=== PATIENT | male | born 1950 | race Caucasian/White ===

== ENCOUNTER 2021-01-16 09:26 | Inpatient (IN) ==
[2021-01-16] MEDS ORDERED: DIPHTHERIA/TETANUS/PERTUSSIS 0.5 ML SYR/VIAL IM ONE (09:27)
[2021-01-16] MEDS ORDERED: ONDANSETRON INJ 2 MG/ML 2 ML VIAL ONE ×2 (09:27→13:00)
[2021-01-16] MEDS ORDERED: HYDROmorphone INJ 1 MG/ML SYRINGE ONE (09:27)
[2021-01-16] MEDS ORDERED: LACTATED RINGER'S 500 ML IV ONE (09:27)
[2021-01-16] MEDS ORDERED: ONDANSETRON INJ 2 MG/ML 2 ML VIAL IV STA ×2 (09:32→10:48)
[2021-01-16] MEDS ORDERED: HYDROmorphone INJ 1 MG/ML SYRINGE IV STA ×3 (09:32→10:48)
[2021-01-16] MEDS ORDERED: LACTATED RINGER'S 1,000 ML IV SCH (09:45)
[2021-01-16 09:57] LABS: Basophils # (auto) 0.02 K/uL (0-0.2); Basophils % (auto) 0.3 %; Eosinophils # (auto) 0.11 K/uL (0-0.5); Eosinophils % (auto) 1.5 %; Hematocrit (blood only) 40.8 % (42-52); Hemoglobin 14.5 g/dL (14.0-18.0); Immature Granulocytes # (auto) 0.01 K/uL (0.00-0.02); Immature Granulocytes % (auto) 0.1 %; Lymphocytes # (auto) 1.51 K/uL (1.2-3.4); Lymphocytes % (auto) 19.9 %; Mean Corpuscular Hemoglobin 32.7 pg (25-34); Mean Corpuscular Hgb Conc 35.5 g/dL (32-36); Mean Corpuscular Volume 91.9 fL (80-100); Mean Platelet Volume 10.3 fL (7.4-10.4); Monocytes # (auto) 0.35 K/uL (0.11-0.59); Monocytes % (auto) 4.6 %; Neutrophils # (auto) 5.58 K/uL (1.4-6.5); Neutrophils % (auto) 73.6 %; Platelet Count 175 K/uL (130-400); RDW Coefficient of Variation 13.2 % (11.5-14.5); RDW Standard Deviation 43.7 fL (36.4-46.3); Red Blood Count 4.44 M/uL (4.7-6.1); White Blood Count 7.58 K/uL (4.8-10.8)
--- NOTE | 2021-01-16 09:57 | XRay Report ---
XR tibia fibula LT 2V, XR foot LT 2V HISTORY: 70 years-old Male trauma pain acute pain of the left lower leg and foot status post trauma COMPARISON: None TECHNIQUE: 2 views of the left tibia and fibula with 2 views of the left foot FINDINGS: TIBIA/FIBULA: Acute transverse fractures of the mid to distal diaphyseal tibia and fibula demonstrate mild apex med ial and volar angulation with lateral displacement measuring up to 1.3 cm. Mild associated foreshorte yony. Moderate associated soft tissue swelling. FOOT: Limited exam secondary to positioning. Soft tissue swelling of the lower leg and ankle, most pronounc ed medially. Dorsal soft tissue swelling of the forefoot. Mild multifocal osteoarthritis. No acute fr acture or dislocation identified. IMPRESSION: 1. Acute transverse, displaced, mildly angulated and foreshortened fractures of the mid to distal binh physeal tibia and fibula. 2. No acute fracture of the left foot. ACT 112: Negative or not required by law. The above report was generated using voice recognition software. It may contain grammatical, syntax o r spelling errors. Electronically signed by: Roger Dorado M.D. 01/16/2021 9:56 AM
[2021-01-16 10:08] LABS: Prothrombin Time 9.8 Seconds (9.0-12.0)
[2021-01-16 10:35] LABS: Albumin Level 3.8 gm/dl (3.4-5.0); BUN Creatinine Ratio 12.9 (10-20); Calcium 8.9 mg/dl (8.5-10.1); Creatinine Clr Calc Pharmacy 50.5 ml/min; Est GFR (African American) 50.6 ml/min; Est GFR (Non-African American) 43.7 ml/min; Potassium 4.2 mmol/L (3.5-5.1)
[2021-01-16 10:38] LABS: Albumin Globulin Ratio 1.2 (0.9-2); Bilirubin,Total 0.5 mg/dl (0.2-1); Globulin 3.3 gm/dl (2.5-4.0); Total Protein 7.1 gm/dl (6.4-8.2)
[2021-01-16] MEDS ORDERED: ceFAZolin 1000MG 1,000 MG/7.5 ML SYR IV STA (10:48)
--- NOTE | 2021-01-16 11:03 | XRay Report ---
XR tibia fibula LT 2V HISTORY: 70 years-old Male post splinting, reduction attempt status post casting reduction of the ac [place] band distal tibia and fibula fractures of the left leg COMPARISON: Radiographs of same day at 9:26 AM TECHNIQUE: 2 views of the left tibia and fibula FINDINGS: Acute fractures of the mid to distal tibia and fibular diaphyses are redemonstrated with mild persist ent foreshortening. Mildly progressed apex medial angulation with lateral displacement measuring up t o 11 mm. Mild apex volar angulation with posterior displacement measuring up to 11 mm. Persistent sof t tissue swelling. IMPRESSION: Persistent displacement and angulation of the acute mid to distal tibia and fibular fract ures status post reduction and casting. ACT 112: Negative or not required by law. The above report was generated using voice recognition software. It may contain grammatical, syntax o r spelling errors. Electronically signed by: Roger Dorado M.D. 01/16/2021 11:02 AM
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
[2021-01-16] MEDS ORDERED: ONDANSETRON INJ 2 MG/ML 2 ML VIAL IV PRN ×3 (11:16→17:21)
[2021-01-16] MEDS ORDERED: METOCLOPRAMIDE HCL INJ 5 MG/ML 2 ML VIAL IV PRN ×3 (11:16→17:21)
[2021-01-16] MEDS ORDERED: SODIUM CHLORIDE 0.9% 1000ML 1,000 ML IV SCH ×2 (11:30→17:21)
[2021-01-16] MEDS ORDERED: BUPIVACAINE 0.5 % 5 MG/1 ML MPF 30ML VIAL ONE (12:14)
[2021-01-16] MEDS ORDERED: EPINEPHrine INJ 1 MG/ML AMP ONE (12:14)
[2021-01-16] MEDS ORDERED: ROPIVACAINE 0.5% 5 MG/ML 30 ML VIAL ONE (12:23)
[2021-01-16] MEDS ORDERED: ePHEDrine sulfate 50 MG/ML AMP IV PRN (12:27)
[2021-01-16] MEDS ORDERED: fentaNYL citrate 100 MCG/2 ML VIAL IV PRN (12:27)
[2021-01-16] MEDS ORDERED: HYDROmorphone INJ 2 MG/ML SYR/VIAL IV PRN (12:27)
[2021-01-16] MEDS ORDERED: PROMETHAZINE HCL 12.5 MG in SODIUM CHLORIDE 0.9% 50 ML IV PRN (12:27)
[2021-01-16] MEDS ORDERED: ATROPINE SULFATE 0.1 MG/ML 10ML SYR IV PRN (12:27)
[2021-01-16] MEDS ORDERED: MIDAZOLAM HCL 1 MG/ML 2ML VIAL ONE (12:30)
[2021-01-16] MEDS ORDERED: fentaNYL citrate 100 MCG/2 ML VIAL ONE (12:30)
[2021-01-16] MEDS ORDERED: KETAMINE 50 MG/5 ML SYRINGE ONE (12:59)
[2021-01-16] MEDS ORDERED: LIDOCAINE 2% 2 ML VIAL/AMP(20MG/ML) INFIL ONE (13:00)
[2021-01-16] MEDS ORDERED: DEXAMETHASONE SOD INJ 4 MG/ML VIAL ONE (13:00)
[2021-01-16] MEDS ORDERED: ROCURONIUM BROMIDE 10 MG/ML 5 ML VIAL IV ONE (13:00)
[2021-01-16] MEDS ORDERED: PROPOFOL IV EMULSION 10 MG/ML 20 ML VIAL IV ONE (13:00)
[2021-01-16] MEDS ORDERED: TRANEXAMIC ACID / 0.7% NACL 1000MG/100ML BAG IV ONE (13:50)
--- NOTE | 2021-01-16 13:56 | Anesthesiology Consultation ---
Date of Service January 16, 2021 Assessment & Plan Chart Review Chart Review: Acceptable Risk for Surgery Consults Requested none History Surgery Operation Date: 01/16/21 10:40 Proposed Procedures p Left Tibia Nailing - Taran Jensen MD Height/Weight Height: 5 ft 11 in Weight: 94 kg Allergies Allergy/AdvReac Type Severity Reaction Status Date / Time No Known Allergies Allergy Unverified 01/16/21 11:04 Medications Home Medications Medication Instructions Recorded Confirmed Last Taken allopurinol 100 mg tablet 100 mg PO HS 01/16/21 01/16/21 01/15/21 finasteride 5 mg tablet 5 mg PO HS 01/16/21 01/16/21 01/15/21 tamsulosin 0.4 mg capsule 0.4 mg PO HS 01/16/21 01/16/21 01/15/21 Active Medications Generic Name Dose Route Start Last Admin Trade Name Freq PRN Reason Stop Dose Admin Lactated Ringer's 1,000 mls @ 125 mls/hr 01/16/21 09:45 01/16/21 10:38 Lr IV 02/15/21 09:44 125 mls/hr .Q8H ARNULFO Administration NPO Date Last Intake of Fluids: 01/16/21 Time Last Intake of Fluids: 04:00 Date Last Intake of Solids: 01/15/21 Time Last Intake of Solids: 18:00 Social History Smoking Status: Former smoker Physical Exam Vital Signs Last Vital Signs Temp 36.8 C 01/16/21 12:16 Pulse 61 01/16/21 12:16 Resp 18 01/16/21 12:16 BP 138/78 01/16/21 12:16 Pulse Ox 100 01/16/21 12:16 Testing Laboratory Results 01/16/21 09:37 01/16/21 09:37 PT 9.8 Seconds (9.0-12.0) 01/16/21 09:37 INR 1.0 (0.9-1.1) 01/16/21 09:37 Blood Type O Positive 01/16/21 09:37 Antibody Screen NEGATIVE 01/16/21 09:37
[2021-01-16] MEDS ORDERED: ceFAZolin 1000MG 1,000 MG/7.5 ML SYR IV ONE (14:18)
[2021-01-16] MEDS ORDERED: NEOSTIGMINE METHYLSULFATE 1 MG/ML 10ML VIAL ONE (15:29)
[2021-01-16] MEDS ORDERED: GLYCOPYRROLATE 0.2 MG/ML VIAL ONE (15:29)
--- NOTE | 2021-01-16 15:31 | Electrocardiogram Report ---
Test Reason : Blood Pressure : / mmHG Vent. Rate : 070 BPM Atrial Rate : 070 BPM P-R Int : 172 ms QRS Dur : 090 ms QT Int : 386 ms P-R-T Axes : 063 010 023 degrees QTc Int : 416 ms Poor data quality, interpretation may be adversely affected Normal sinus rhythm Normal ECG No previous ECGs available Confirmed by Marcos Meraz ([id number]) on 01/16/2021 3:30:59 PM Referred By: REFERRED SELF Confirmed By:Gustavo Meraz
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
--- NOTE | 2021-01-16 16:08 | Fluoroscopy Report ---
FL foot LT 2V, FL tibia/fibula LT 2V CLINICAL HISTORY: Left foot and toe images during tib/fib surgery. 1st toe lac COMPARISON STUDY: Left foot 01/16/2021. Left tibia/fibula 01/16/2021. FLUOROSCOPY TIME: 2 minutes and 19 seconds. FINDINGS: 10 fluoroscopic spot images of the left foot and 14 fluoroscopic spot images of the left lo wer leg worse minute for review. There is an intramedullary brown traversing the mid shaft tibial fract ure. The hardware appears intact. Alignment is near-anatomic. There is also improved anatomic alignme nt of the mid shaft fibular fracture. IMPRESSION: Fluoroscopy provided for internal fixation of the mid shaft left tibial and fibular fract ures. The hardware appears intact. ACT 112: Negative or not required by law. Electronically signed by: Paolo Mauro M.D. 01/16/2021 4:07 PM
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
--- NOTE | 2021-01-16 17:11 | Anesthesiology Progress Note ---
Date of Service January 16, 2021 Anesthesia Post Procedure Vital Signs Vital Signs: Temp Pulse Pulse Pulse Resp BP BP 01/16/21 16:55 46 L 16 141/68 H 01/16/21 16:45 36 C L 50 L 16 151/76 H 01/16/21 16:35 58 L 16 151/78 H 01/16/21 16:25 48 L 13 119/68 01/16/21 16:15 48 L 12 145/72 H 01/16/21 16:05 49 L 15 139/71 01/16/21 15:55 36 C L 62 16 164/83 H 01/16/21 12:16 36.8 C 61 18 138/78 01/16/21 11:00 67 153/89 H 01/16/21 10:30 60 156/91 H 01/16/21 10:00 73 149/83 H 01/16/21 09:46 79 20 134/87 01/16/21 09:30 72 161/83 H Pulse Ox 01/16/21 16:55 98 01/16/21 16:45 98 01/16/21 16:35 97 01/16/21 16:25 97 01/16/21 16:15 99 01/16/21 16:05 99 01/16/21 15:55 100 01/16/21 12:16 100 01/16/21 11:00 98 01/16/21 10:30 98 01/16/21 10:00 96 01/16/21 09:46 93 01/16/21 09:30 99 Pain Intensity Left Leg: Pain Intensity: 6 Transfer of Care Handoff Completed per policy Notes Mental Status: alert / awake / arousable Patient Amnestic to Procedure: Yes Nausea / Vomiting: adequately controlled Pain: adequately controlled Airway Patency, RR, SpO2: stable & adequate BP & HR: stable & adequate Hydration State: stable & adequate Anesthetic Complications: no major complications apparent
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
[2021-01-16] MEDS ORDERED: ALUMINUM/MAGNESIUM SUSP 30 ML UDC PO PRN (17:21)
[2021-01-16] MEDS ORDERED: HYDROmorphone INJ 0.5 MG/0.5 ML SYR IV PRN (17:21)
[2021-01-16] MEDS ORDERED: diphenhydrAMINE 50 MG/ML VIAL IV PRN (17:21)
[2021-01-16] MEDS ORDERED: bisacodyL 10 MG SUPP PR PRN (17:21)
[2021-01-16] MEDS ORDERED: NALOXONE HCL 0.4 MG/1 ML VIAL/CARP IV PRN (17:21)
[2021-01-16] MEDS ORDERED: MAGNESIUM HYDROXIDE SUSP 30 ML UDC PO PRN (17:21)
[2021-01-16] MEDS: ASCORBIC ACID 500 MG TAB PO SCH (18:45)
[2021-01-16] MEDS: FERROUS GLUCONATE 324 MG TAB PO SCH (18:45)
[2021-01-16] MEDS: KETOROLAC TROMETHAMINE 15 MG/ML VIAL IV SCH ×2 (18:46→23:35)
--- NOTE | 2021-01-16 19:42 | Progress Notes ---
DATE OF SERVICE: 01/16/2021 SUBJECTIVE: The patient is comfortable. Pain is well controlled. I discussed with him the results of the surgical procedure including the evaluation of his knee, the intramedullary nailing of his tib ia, the evaluation of his toe as well as stress x-rays of the foot. Plan is to get CT scan of foot a nd ankle for further evaluation. Vascular surgery will also evaluate his nonpalpable posterior tibia l pulse. OBJECTIVE: His dressing is clean and dry. Eversion strength is 4/5. Ankle plantar flexion and dors iflexion 5/5. Toe flexion and extension 4/5. Inversion 5/5. Capillary refill is less than 2 second s in the lesser toes. Dorsalis pedis is 1+ palpable and sensation is intact throughout the toes and dorsum and plantar aspect of the foot. PLAN: Administer 24 hours of IV antibiotics. Vascular consult. PT for toe touch weightbearing. We will reevaluate the wounds. Lovenox for DVT prophylaxis. Pain control. Job ID: [id number]
[2021-01-16] MEDS: FINASTERIDE 5 MG TAB PO SCH (21:10)
[2021-01-16] MEDS: TAMSULOSIN HCL 0.4 MG CAP PO SCH (21:10)
[2021-01-16] MEDS: ACETAMINOPHEN 500 MG TAB PO SCH (21:10)
[2021-01-16] MEDS: allopurinoL 100 MG TAB PO SCH (21:10)
[2021-01-16] MEDS: ceFAZolin 2000MG 2,000 MG/15 ML SYR IV SCH (21:11)
[2021-01-16] MEDS: SENNA 8.6 MG TAB PO SCH (21:11)
[2021-01-16] MEDS: DOCUSATE SODIUM 100 MG CAP PO SCH (21:11)
[2021-01-17] MEDS: ceFAZolin 2000MG 2,000 MG/15 ML SYR IV SCH ×2 (05:33→14:25)
[2021-01-17] MEDS: ACETAMINOPHEN 500 MG TAB PO SCH ×3 (05:33→19:43)
[2021-01-17] MEDS: KETOROLAC TROMETHAMINE 15 MG/ML VIAL IV SCH ×2 (05:34→12:06)
[2021-01-17] MEDS: oxyCODONE HCL IR 5 MG TAB (IMMEDIATE RELEASE) PO PRN ×3 (05:39→22:24)
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
--- NOTE | 2021-01-17 08:27 | Orthopedic Progress Note ---
Date of Service January 17, 2021 Assessment & Plan (1) Open fracture of tibia and fibula, shaft: Plan: x doing well. We will continue elevation icing. PT and OT. Toe-touch weightbearing on the left leg. Will review CT scan of foot and ankle for further information. Active movement of ankle and knee. There is no clinical evidence of compartment syndrome. He has no pain with passive or active movement. Lovenox for DVT prophylaxis. 24-hour course of IV antibiotics. Vascular consult pending. Present on Admission?: Yes Admission and Anticipated Discharge Date Admission Date: January 16, 2021 Subjective Reports 5 out of 10 pain. Much better than previous. No tingling or numbness. We discussed the surgical findings. The open fracture. The exam of the foot. Diminished pulses and vascular consult pending. Weightbearing limitation and open fracture care. Physical Exam Physical Exam: Dressing is clean and dry. He has 4 out of 5 inversion and eversion strength. 5 out of 5 ankle plantarflexion and dorsiflexion strength. He can actively flex and extend the toes but does not have what I would consider normal strength. 3+ out of 5. He can extend and flex the big toe. Dorsalis pedis pulses not palpable but it is dopplerable. He has a palpable 1+ pulse on the right foot. Capillary refill is less than 2 seconds. Foot is warm and not mottled. Results & Data ([facility]) Vital Signs (Past 12 Hours) Vital Signs Temp Pulse Pulse Resp BP Pulse Ox 01/17/21 07:27 36.5 C 62 76 17 119/70 98 01/17/21 04:00 36.6 C 72 16 124/71 99 01/16/21 22:49 36.4 C L 82 16 123/67 98 01/16/21 21:20 36.4 C L 01/16/21 21:01 36.4 C L 78 16 134/78 97 Laboratory Results 01/17/21 01/16/21 01/16/21 Range/Units 08:04 10:00 10:00 WBC Pending (4.8-10.8) K/uL RBC Pending (4.7-6.1) M/uL Hgb Pending (14.0-18.0) g/dL Hct Pending (42-52) % MCV Pending (80-100) fL MCH Pending (25-34) pg MCHC Pending (32-36) g/dL RDW Std Deviation (36.4-46.3) fL RDW Coeff of Jeff (11.5-14.5) % Plt Count Pending (130-400) K/uL MPV (7.4-10.4) fL Immature Gran % (Auto) % Neut % (Auto) % Lymph % (Auto) % Lee % (Auto) % Eos % (Auto) % Baso % (Auto) % Neut # (Auto) (1.4-6.5) K/uL Lymph # (Auto) (1.2-3.4) K/uL Lee # (Auto) (0.11-0.59) K/uL Eos # (Auto) (0-0.5) K/uL Baso # (Auto) (0-0.2) K/uL Immature Gran # (Auto) (0.00-0.02) K/uL PT (9.0-12.0) Seconds INR (0.9-1.1) Sodium (136-145) mmol/L Potassium (3.5-5.1) mmol/L Chloride (98-107) mmol/L Carbon Dioxide (21-32) mmol/L Anion Gap (3-11) BUN (7-18) mg/dl Creatinine (0.6-1.4) mg/dl Est Cr Clr Drug Dosing ml/min Est GFR ( Amer) ml/min Est GFR (Non-Af Amer) ml/min BUN/Creatinine Ratio (10-20) Glucose (70-99) mg/dl Calcium (8.5-10.1) mg/dl Total Bilirubin (0.2-1) mg/dl AST (15-37) U/L ALT (12-78) U/L Alkaline Phosphatase (45-117) U/L Total Creatine Kinase (39-308) U/L Total Protein (6.4-8.2) gm/dl Albumin (3.4-5.0) gm/dl Globulin (2.5-4.0) gm/dl Albumin/Globulin Ratio (0.9-2) COVID-19 Eval Order Covid19 at [facility] SARS-CoV-2 (PCR) NEGATIVE (Negative) Blood Type Antibody Screen 0801/16/21 01/16/21 Range/Units 09:37 09:37 09:37 WBC (4.8-10.8) K/uL RBC (4.7-6.1) M/uL Hgb (14.0-18.0) g/dL Hct (42-52) % MCV (80-100) fL MCH (25-34) pg MCHC (32-36) g/dL RDW Std Deviation (36.4-46.3) fL RDW Coeff of Jeff (11.5-14.5) % Plt Count (130-400) K/uL MPV (7.4-10.4) fL Immature Gran % (Auto) % Neut % (Auto) % Lymph % (Auto) % Lee % (Auto) % Eos % (Auto) % Baso % (Auto) % Neut # (Auto) (1.4-6.5) K/uL Lymph # (Auto) (1.2-3.4) K/uL Lee # (Auto) (0.11-0.59) K/uL Eos # (Auto) (0-0.5) K/uL Baso # (Auto) (0-0.2) K/uL Immature Gran # (Auto) (0.00-0.02) K/uL PT 9.8 (9.0-12.0) Seconds INR 1.0 (0.9-1.1) Sodium 138 (136-145) mmol/L Potassium 4.2 (3.5-5.1) mmol/L Chloride 108 H (98-107) mmol/L Carbon Dioxide 27 (21-32) mmol/L Anion Gap 3.0 (3-11) BUN 20 H (7-18) mg/dl Creatinine 1.57 H (0.6-1.4) mg/dl Est Cr Clr Drug Dosing 50.5 ml/min Est GFR ( Amer) 50.6 ml/min Est GFR (Non-Af Amer) 43.7 ml/min BUN/Creatinine Ratio 12.9 (10-20) Glucose 139 H (70-99) mg/dl Calcium 8.9 (8.5-10.1) mg/dl Total Bilirubin 0.5 (0.2-1) mg/dl AST 20 (15-37) U/L ALT 28 (12-78) U/L Alkaline Phosphatase 94 (45-117) U/L Total Creatine Kinase 192 (39-308) U/L Total Protein 7.1 (6.4-8.2) gm/dl Albumin 3.8 (3.4-5.0) gm/dl Globulin 3.3 (2.5-4.0) gm/dl Albumin/Globulin Ratio 1.2 (0.9-2) COVID-19 Eval Order SARS-CoV-2 (PCR) (Negative) Blood Type O Positive Antibody Screen NEGATIVE 01/16/21 Range/Units 09:37 WBC 7.58 (4.8-10.8) K/uL RBC 4.44 L (4.7-6.1) M/uL Hgb 14.5 (14.0-18.0) g/dL Hct 40.8 L (42-52) % MCV 91.9 (80-100) fL MCH 32.7 (25-34) pg MCHC 35.5 (32-36) g/dL RDW Std Deviation 43.7 (36.4-46.3) fL RDW Coeff of Jeff 13.2 (11.5-14.5) % Plt Count 175 (130-400) K/uL MPV 10.3 (7.4-10.4) fL Immature Gran % (Auto) 0.1 % Neut % (Auto) 73.6 % Lymph % (Auto) 19.9 % Lee % (Auto) 4.6 % Eos % (Auto) 1.5 % Baso % (Auto) 0.3 % Neut # (Auto) 5.58 (1.4-6.5) K/uL Lymph # (Auto) 1.51 (1.2-3.4) K/uL Lee # (Auto) 0.35 (0.11-0.59) K/uL Eos # (Auto) 0.11 (0-0.5) K/uL Baso # (Auto) 0.02 (0-0.2) K/uL Immature Gran # (Auto) 0.01 (0.00-0.02) K/uL PT (9.0-12.0) Seconds INR (0.9-1.1) Sodium (136-145) mmol/L Potassium (3.5-5.1) mmol/L Chloride (98-107) mmol/L Carbon Dioxide (21-32) mmol/L Anion Gap (3-11) BUN (7-18) mg/dl Creatinine (0.6-1.4) mg/dl Est Cr Clr Drug Dosing ml/min Est GFR ( Amer) ml/min Est GFR (Non-Af Amer) ml/min BUN/Creatinine Ratio (10-20) Glucose (70-99) mg/dl Calcium (8.5-10.1) mg/dl Total Bilirubin (0.2-1) mg/dl AST (15-37) U/L ALT (12-78) U/L Alkaline Phosphatase (45-117) U/L Total Creatine Kinase (39-308) U/L Total Protein (6.4-8.2) gm/dl Albumin (3.4-5.0) gm/dl Globulin (2.5-4.0) gm/dl Albumin/Globulin Ratio (0.9-2) COVID-19 Eval Order SARS-CoV-2 (PCR) (Negative) Blood Type Antibody Screen (1) Open fracture of tibia and fibula, shaft Encounter type: initial encounter Laterality: left Open fracture type: open type I or II Qualified Code(s): S82.202B - Unspecified fracture of shaft of left tibia, initial encounter for open fracture type I or II; S82.402B - Unspecified fracture of shaft of left fibula, initial encounter for open fracture type I or II
[2021-01-17 08:28] LABS: Hematocrit (blood only) 36.9 % (42-52); Mean Corpuscular Hemoglobin 32.6 pg (25-34); Mean Corpuscular Hgb Conc 35.2 g/dL (32-36); Mean Corpuscular Volume 92.5 fL (80-100); Mean Platelet Volume 10.7 fL (7.4-10.4); Platelet Count 191 K/uL (130-400); RDW Coefficient of Variation 13.3 % (11.5-14.5); RDW Standard Deviation 44.5 fL (36.4-46.3); Red Blood Count 3.99 M/uL (4.7-6.1); White Blood Count 13.15 K/uL (4.8-10.8)
[2021-01-17] MEDS: ENOXAPARIN INJ 30 MG/0.3 ML SYR SQ SCH ×2 (09:15→19:41)
[2021-01-17] MEDS: FERROUS GLUCONATE 324 MG TAB PO SCH ×2 (09:15→16:36)
[2021-01-17] MEDS: ASCORBIC ACID 500 MG TAB PO SCH ×2 (09:15→16:36)
[2021-01-17] MEDS: MULTIVITAMIN TAB PO SCH (09:15)
[2021-01-17] MEDS: DOCUSATE SODIUM 100 MG CAP PO SCH ×2 (09:15→19:42)
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
[2021-01-17] MEDS ORDERED: OPTIRAY 320 125ml IV ONE (14:14)
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
[2021-01-17] MEDS: SENNA 8.6 MG TAB PO SCH (19:42)
[2021-01-17] MEDS: allopurinoL 100 MG TAB PO SCH (19:42)
[2021-01-17] MEDS: TAMSULOSIN HCL 0.4 MG CAP PO SCH (19:42)
[2021-01-17] MEDS: FINASTERIDE 5 MG TAB PO SCH (19:43)
[2021-01-18] MEDS: oxyCODONE HCL IR 5 MG TAB (IMMEDIATE RELEASE) PO PRN ×4 (03:19→20:15)
[2021-01-18] MEDS: ACETAMINOPHEN 500 MG TAB PO SCH ×3 (05:06→21:13)
[2021-01-18] MEDS: FERROUS GLUCONATE 324 MG TAB PO SCH ×2 (08:32→15:59)
[2021-01-18] MEDS: ASCORBIC ACID 500 MG TAB PO SCH ×2 (08:32→15:59)
[2021-01-18] MEDS: MULTIVITAMIN TAB PO SCH (08:32)
[2021-01-18] MEDS: ENOXAPARIN INJ 30 MG/0.3 ML SYR SQ SCH ×2 (08:32→20:06)
[2021-01-18] MEDS: DOCUSATE SODIUM 100 MG CAP PO SCH ×2 (08:32→20:07)
--- NOTE | 2021-01-18 10:53 | Communication Note ---
Date of Service: January 18, 2021 CTA showed a short occlusion of the left posterior tibial artery. The peroneal is widely patent in its entire course. The anterior tibial has areas of mild narrowing but is patent and feeds the dorsalis pedis artery. No intervention is indicated at this time. There is good perfusion to the left foot.
[2021-01-18] MEDS: FINASTERIDE 5 MG TAB PO SCH (20:07)
[2021-01-18] MEDS: SENNA 8.6 MG TAB PO SCH (20:07)
[2021-01-18] MEDS: TAMSULOSIN HCL 0.4 MG CAP PO SCH (20:07)
[2021-01-18] MEDS: allopurinoL 100 MG TAB PO SCH (20:07)
--- NOTE | 2021-01-18 21:57 | Orthopedic Progress Note ---
Date of Service January 18, 2021 Assessment & Plan (1) S/P ORIF (open reduction internal fixation) fracture: Plan: Patient's dressings were changed by me. [place] wrap was applied to assist with edema control. Continue with ice and elevation. Continue with PT using toe- touch weightbearing. Patient was seen by adoption social worker today. They will make arrangements so that he may return home to [place]. Anticipate that he will be ready for discharge tomorrow. Patient will be need to be seen in the office next week for wound check, and then again the following week with Dr. Jensen for staple removal. Continue with Lovenox. Admission and Anticipated Discharge Date Admission Date: January 16, 2021 Subjective Patient is seen in his room this morning. States he has some pain in his leg, but it is better than preop. He denies any chest pain, shortness of breath, nausea, vomiting, or abdominal pain. He would like to go home. No new complaints. He was able to participate with PT today and ambulated 40 feet. He would like to be able to bend his knee. He states the dressing is preventing him from doing so. He has been using Percocet fairly regularly through the night. He has not required any Dilaudid. Review of Systems Review of Systems: Unchanged from yesterday. Physical Exam Physical Exam: General: Well-developed, elderly male, in no acute distress. Sitting in his bedside chair. Alert and oriented. Conversive. Skin: Warm and dry with good turgor. Postsurgical dressings are in place. Upon removal, he has expected postoperative ecchymosis and 2+ peripheral edema through the ankle and foot. No active bleeding from his surgical sites. Musculoskeletal: Patient has intact motor function of his knee, ankle, and toes. Neurologic: Gross sensation is intact across the lower leg and foot by soft touch. Capillary refill is equal for the toes. Results & Data ([facility]) Vital Signs (Past 12 Hours) Vital Signs Temp Pulse Resp BP Pulse Ox 01/18/21 15:40 36.5 C 73 16 119/70 96
[2021-01-19] MEDS: oxyCODONE HCL IR 5 MG TAB (IMMEDIATE RELEASE) PO PRN ×4 (00:28→13:35)
[2021-01-19] MEDS: ACETAMINOPHEN 500 MG TAB PO SCH ×2 (05:17→15:39)
--- NOTE | 2021-01-19 08:15 | Progress Notes ---
DATE: 01/19/2021. SUBJECTIVE: He is resting comfortably in bed. His pain is well controlled. He denies any tingling or numbness or pain elsewhere from the left lower extremity. OBJECTIVE: He is afebrile and his vital signs are stable. No new labs today. Examination of the left lower extremity reveals that the foot and leg compartments are soft. He has intact sensation throughout the left lower leg. Capillary refill is less than 2 seconds in all digit s, and he has a 1+ dorsalis pedis pulse. He has a fracture blister medially with some swelling and I cannot feel his posterior tibial pulse because of that. He can bend his knee about 45 degrees and d o a leg lift. He has 4+/5 to 5-/5 strength on eversion, inversion, dorsiflexion, and plantarflexion of the ankle. He has difficulty with big toe IP flexion and extension, but he can grossly flex and e xtend all of the toes. Strength would be 3+/5 to 4-/5. Excursion limited. The big toe is swollen. There is some maceration present. The toenail has been removed. The wounds are otherwise healing w ell. There is some bruising of the lesser toes. There is bruising of the foot. There are several e volving fracture blisters along the anterolateral aspect of the foot and ankle. He can activate tibi nate anterior and gastrocsoleus very well and they are palpably and visibly intact. He can activate EHL, but does not have good strength. He does have tenderness over the mid foot, roughly first, seco nd, third tarsometatarsal area without deformity. The open fracture site looks benign. No active dr iqbal. Skin edges are well approximated with no wound breakdown. Otherwise, incisions look fine. Limited swelling of the leg area, but moderate swelling of the foot. IMPRESSION AND PLAN: A grade 1 open fracture of the distal phalanx of the left big toe. A left foot crush injury. A grade 1 open left tib-fib fracture. He also has peripheral artery disease. I discussed with Rodo my findings. He has had a circulation evaluation. He does have some narrowin g and blockages, but Dr. Alvarez felt that circulation was adequate at this time and that no intervent ion was necessary. The CT scan of the foot and ankle have been previously reviewed and did show the fracture at the distal tuft of the big toe. This was an open fracture, which was treated at the time of surgery with irrigation and closure. There was no other structural injury noted and, in particul ar, no distortion of the tarsometatarsal articulation. His foot compartments are soft. I also evalu ated the tarsometatarsal articulation fluoroscopically and found no evidence of instability. He is to elevate, ice. DJ will reapply dressings. When his services are set up, he can be discharge d home. He will be toe-touch weightbearing on the left lower extremity using a walker. Pain medicat ion. Lovenox. Check weekly CBC. He would like to come back and follow up with me here in my office and we will need to see him back next week. Fiordaliza will see him. I will be out of town. He can be doing leg lifts, toe, ankle, and knee range of motion at this time. If there are any problems wit h his wounds, swelling, fevers, drainage, or any other problems or questions, go to the nearest [facility] ency room or call my office. Will continue to monitor the foot and get followup x-rays. Monitor the soft tissue integrity/fracture blisters. Will allow these to dry out. He has received his 24-hour course of postoperative antibiotics for his open fractures. He is not able to work. Job ID: [id number]
[2021-01-19] MEDS: DOCUSATE SODIUM 100 MG CAP PO SCH (09:35)
[2021-01-19] MEDS: MULTIVITAMIN TAB PO SCH (09:35)
[2021-01-19] MEDS: ASCORBIC ACID 500 MG TAB PO SCH (09:35)
[2021-01-19] MEDS: FERROUS GLUCONATE 324 MG TAB PO SCH (09:35)
[2021-01-19] MEDS: ENOXAPARIN INJ 30 MG/0.3 ML SYR SQ SCH (09:36)
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
== END 2021-01-19 16:28 | disposition home health service (06) | DRG 494 ==
LOC: ED 09:26 → OR 11:59 → 3N 16:07